=== PATIENT | female | born 1945 | race Caucasian/White ===

== ENCOUNTER → 2017-04-13 | Outpatient (CLI) | payer OTHER | LOC: FIMAGING 15:14 | PROVIDERS: ATTEND Family Medicine | DX: Z12.31 Encounter for screening mammogram for malignant neoplasm of breast (principal) | CPT/HCPCS: G0202 ==

== ENCOUNTER 2017-06-02 16:39 | Emergency (ER) | payer OTHER ==
[2017-06-02 16:53] VITALS: RESP 18; TEMP 98.4
[2017-06-02] MEDS ORDERED: LET GEL TOPICAL 1 EA SYR TP ONE (17:11)
[2017-06-02] MEDS ORDERED: IBUPROFEN 600 MG TAB PO ONE (17:18)
--- NOTE | 2017-06-02 17:41 | EDPHY ---
H & P Time Seen by Provider: 06/02/17 16:49 HPI/ROS: This patient suffered a mechanical fall on an uneven surface of a concrete driveway shortly prior to arrival with injuries to face, left wrist, right knee and a small lip injury, driven here by private vehicle by her spouse for evaluation. She reports 7/10 pain to the lip and 7/10 pain to the right knee with moderate pain to the left wrist. She describes a volar direct blow to the wrist and anterior direct blow to the right patella in the mechanism. She also reports a generalized headache. She did not have loss of consciousness and was not dazed from the injury. She has not had any medication prior to arrival. She felt well prior to the mechanical fall which she tripped. ROS: Neuro: No confusion. No focal numbness tingling weakness. No vision changes. Pulmonary: No chest wall pain or shortness of breath Cardiovascular: No heart palpitations or lightheadedness. No pallor to the affected extremities. GI: No belly injury. No nausea. She reports that she is hungry. Integumentary: Abrasion to the right knee and small laceration to the upper lip. Mild bleeding from both. Musculoskeletal: She reports minimal left lateral neck pain but no midline neck or back pain. No other extremity injuries. 7 point ROS is otherwise negative. Past Medical/Surgical History: Hypertension. Otherwise healthy. Smoking Status: Never smoked Physical Exam: Physical exam: Vital signs are normal General: Patient is in no acute distress. HEENT: Patient is a small 5mm well-approximated laceration to the upper lip buccal mucosa. There is no active bleeding from the wound. No foreign bodies under examination. There is no significant cosmetic defect to the external portion of the lip. No dental injury or other intraoral injuries. No malocclusion. Nose atraumatic. Ears: Cerumen impaction on the right. Left external canal is normal TM is clear with no hemotympanum. Eyes: Pupils are equal and reactive to light. Extraocular motions are intact. Optic fundi: Clear with no papilledema or hemorrhage. Lungs: Clear to auscultation bilaterally Neck: No midline tenderness. Minimal left lateral tenderness near the occiput that does not worsen with range of motion of neck. Cardiac: Regular rate and rhythm no murmur gallop or rub. Abdomen: Soft nontender no organomegaly Neuro: GCS of 15. Cranial nerves II through XII intact. Cerebellar exam is normal as judged by symmetric rapid hand movements bilaterally. No pronator drift. No sensory or motor deficits are appreciated. Extremities: Left wrist notable for volar ecchymosis, swelling and tenderness. Despite this she maintains good range of motion. There is no tenderness in the anatomical snuffbox or dorsal tenderness. No hand injury. Right knee exam notable for patellar swelling and tenderness with superficial abrasion. There is associated ecchymosis to the patella. No medial, lateral or posterior knee tenderness. She maintains good range of motion of the knee with exception of partial mentation flexion due to patellar pain. The remainder of the extremity exam is atraumatic normal. Initial differential diagnosis: Minor head injury, lip laceration, patellar contusion versus fracture, wrist contusion versus fracture Constitutional: Initial Vital Signs Temperature (C) 36.9 C 06/02/17 16:47 Heart Rate 77 06/02/17 16:47 Respiratory Rate 18 06/02/17 16:47 Blood Pressure 150/67 H 06/02/17 16:47 O2 Sat (%) 93 06/02/17 16:47 O2 Delivery Mode Room Air Allergies/Adverse Reactions: No Known Allergies Allergy (Unverified 06/02/17 16:53) Home Medications: Medication Instructions Recorded Asthmanex 06/02/17 Flonase Allergy Relief 06/02/17 Penicillin V Potassium [Pen Vk 500 mg PO BID #14 tab 06/02/17 500mg (*)] Triamterene 06/02/17 MDM/Departure - MDM Diagnostics: Wrist x-rays: Negative for acute fracture by my interpretation Knee x-rays: Negative for acute fracture by my interpretation Imaging Results: Imaging Impressions Knee X-Ray 06/02/17 17:12 Impression: No acute osseous findings. Wrist X-Ray 06/02/17 17:17 Impression: Degenerative changes. No fracture identified. Imaging: I viewed and interpreted images myself Medications Given: Discontinued Medications Ibuprofen (Motrin) 600 mg PO EDNOW ONE Stop: 06/02/17 17:19 Last Admin: 06/02/17 17:24 Dose: 600 mg Tetracaine/Epinephrine/Lidocaine (Let Gel Topical) 1 ea TP EDNOW ONE Stop: 06/02/17 17:12 Last Admin: 06/02/17 17:19 Dose: 1 ea ED Course/Re-evaluation: After lidocaine gel to the lip wound was clean by our nurse. There is no significant recurrence of bleeding on her recheck the lip wound still appears well approximated-buccal aspect of the lip not requiring sutures. Counseled her regarding intraoral wounds with plan to use penicillin antibiotic for prophylaxis-soft diet for 7 days, clean wound after eating. The prepatellar abrasions clean by our nurse, bacitracin bandage and Patel wrap applied Patel wrap also applied to her wrist. After negative radiograph of the wrist further evaluation reveals no limitation in range of motion and no increase in pain with any motion. Findings are most consistent with a contusion or small traumatic hematoma from a direct blow to the volar aspect of the wrist After ibuprofen all of her pain reduced significantly including her minor headache that she had upon initial evaluation. Given that the patient had no loss of consciousness, was not dazed and is not on blood thinners and clinically had improvement in her headache, I do not think that she requires neuro imaging she does not have any red flag findings on her exam. Patient does understand the need to return emergency department should she developed severe headache, confusion, vomiting or other concerns. She is instructed on basic wound care regarding her abrasions and contusions. - Depart Disposition: Home, Routine, Self-Care Clinical Impression: Traumatic hematoma Open lip wound Qualifiers: Encounter type: initial encounter Open wound type: laceration Foreign body presence: without foreign body Qualified Code(s): S01.511A - Laceration without foreign body of lip, initial encounter Contusion of wrist, left Qualifiers: Encounter type: initial encounter Qualified Code(s): S60.212A - Contusion of left wrist, initial encounter Minor head injury without loss of consciousness Qualifiers: Encounter type: initial encounter Qualified Code(s): S09.90XA - Unspecified injury of head, initial encounter Condition: Good Instructions: Head Injury (ED), Contusion in Adults (ED), Acute Wounds (ED) Additional Instructions: Diagnoses: 1. Intraoral lip laceration 2. Wrist contusion 3. Patellar hematoma 4. Minor head injury Plan: Ice 20 minutes at a time to wrist and knee 3 times a day for the next few days. Tylenol and/or ibuprofen for pain as needed Limit activity until he feel improved Clean abrasions daily with warm soapy water Soft diet for the next 5-7 days Clean lip wound after eating. Penicillin antibiotic to prevent infection and mouth. Return emergency department if he develops unbearable headache, vomiting more than twice, confusion or other concerns. Prescriptions: Penicillin V Potassium [Pen Vk 500mg (*)] 500 mg PO BID #14 tab Referrals: Tiesha Zendejas MD [Primary Care Provider] - As per Instructions
[2017-06-02 19:08] VITALS: BP 124/62; PULSE 78; O2SAT 98
== END 2017-06-02 19:07 | disposition home or self-care (01) ==
LOC: CED 16:39
DX: S09.90XA Unspecified injury of head, initial encounter (principal); S60.212A Contusion of left wrist, initial encounter; S01.511A Laceration without foreign body of lip, initial encounter; I10 Essential (primary) hypertension; W18.39XA Other fall on same level, initial encounter
CPT/HCPCS: 73110-PO; 73562-PO

== ENCOUNTER 2017-11-20 17:35 | Inpatient (IN) | payer OTHER ==
[2017-11-20] MEDS ORDERED: IPRATROPIUM/ALBUTEROL 3 ML DEYVIAL IH ONE (17:50)
[2017-11-20] MEDS ORDERED: ACETAMINOPHEN 500 MG TAB PO ONE (17:51)
[2017-11-20] MEDS ORDERED: IBUPROFEN 800 MG TAB PO ONE (17:51)
--- NOTE | 2017-11-20 17:53 | EDPHY ---
H & P Stated Complaint: cough/chills Time Seen by Provider: 11/20/17 17:45 HPI/ROS: CHIEF COMPLAINT: Fever and fatigue HISTORY OF PRESENT ILLNESS: Patient is a 72-year-old female with a history of asthma who comes to the emergency department complaining of fever and chills and fatigue. She has had a nonproductive cough. She states that she had a the upper respiratory infection 3 weeks ago and was treated in [place] with steroids and a Z-Lew. Her symptoms improved slightly but never completely resolved and now worsened. She denies any GI symptoms. No neurologic symptoms. REVIEW OF SYSTEMS: Constitutional: See HPI EENTM: denies: blurred vision, double vision, nose congestion Respiratory: see HPI Cardiac: denies: chest pain, irregular heart rate, lightheadedness, palpitations Gastrointestinal/Abdominal: denies: abdominal pain, diarrhea, nausea, vomiting, blood streaked stools Genitourinary: denies: dysuria, frequency, hematuria, pain Musculoskeletal: denies: joint pain, muscle pain Skin: denies: lesions, rash, jaundice, bruising Neurological: denies: headache, numbness, paresthesia, tingling, dizziness, weakness Hematologic/Lymphatic: denies: blood clots, easy bleeding, easy bruising Immunologic/allergic: denies: HIV/AIDS, transplant EXAM: GENERAL: Overweight, fatigued, warm HEAD: Atraumatic, normocephalic. EYES: Pupils equal round and reactive to light, extraocular movements intact, sclera anicteric, conjunctiva are normal. ENT: TMs normal, nares patent, oropharynx clear without exudates. Moist mucous membranes. NECK: Normal range of motion, supple without lymphadenopathy or JVD. LUNGS: Breath sounds clear to auscultation bilaterally and equal. No wheezes rales or rhonchi. HEART: Regular rate and rhythm without murmurs, rubs or gallops. ABDOMEN: Soft, nontender, normoactive bowel sounds. No guarding, no rebound. No masses appreciated. BACK: No CVA tenderness, no spinal tenderness, step-offs or deformities EXTREMITIES: Normal range of motion, no pitting or edema. No clubbing or cyanosis. NEUROLOGICAL: Cranial nerves II through XII grossly intact. Normal speech, normal gait. 5/5 strength, normal movement in all extremities, normal sensation PSYCH: Normal mood, normal affect. SKIN: Warm, dry, normal turgor, no visible rashes or lesions. Source: Patient Exam Limitations: No limitations - Personal History Current Tetanus/Diphtheria Vaccine: No Current Tetanus Diphtheria and Acellular Pertussis (TDAP): No - Medical/Surgical History Hx Asthma: Yes Hx Chronic Respiratory Disease: No Hx Diabetes: No Hx Cardiac Disease: No Hx Renal Disease: No Hx Cirrhosis: No Hx Alcoholism: No Hx HIV/AIDS: No Hx Splenectomy or Spleen Trauma: No Other PMH: hernia surgery 1997, left knee scope, lumpectomy, asthma - Family History Significant Family History: No pertinent family hx - Social History Smoking Status: Never smoked Alcohol Use: Sober Drug Use: None Constitutional: Initial Vital Signs Temperature (C) 39.1 C H 11/20/17 17:48 Heart Rate 113 H 11/20/17 17:48 Respiratory Rate 22 H 11/20/17 17:48 Blood Pressure 162/78 H 11/20/17 17:48 O2 Sat (%) 92 11/20/17 17:48 O2 Delivery Mode Room Air Allergies/Adverse Reactions: No Known Allergies Allergy (Unverified 06/02/17 16:53) Home Medications: Medication Instructions Recorded Asthmanex 06/02/17 Flonase Allergy Relief 06/02/17 Triamterene 06/02/17 Albuterol Hfa Anes Only 11/20/17 traZODone 50 mg 11/20/17 Medical Decision Making - Diagnostics EKG Interpretation: An EKG obtained and was read and documented in trace view. Please see trace view for full reading and report. Sinus rhythm, tachycardic, PVCs Imaging Results: Imaging Impressions Chest X-Ray 11/20/17 17:50 Impression: Bibasilar infiltrates, left greater than right (consistent with pneumonia), and a questionable tiny right upper lobe opacity, new since 2011. Recommendation: Clinical correlation and follow-up chest radiography in 4-6 weeks to assure resolution. A Follow-Up Required test result has been communicated via the [facility] Result system on 11/20/2017 18:30, Message ID [id number]. Imaging: Discussed imaging studies w/ on call pharmacy technician Radiologist ED Course/Re-evaluation: 6:30 p.m. We discussed the x-ray results. Will add on blood work and antibiotics. As well as fluids. The patient is saturating 93% on room air. 7:00 p.m. the patient's lactate is normal. Her white blood cell count is elevated. I have spoken with Dr. Ngo who will accept to the medical floor. She does meet criteria for sepsis but not severe sepsis. Differential Diagnosis: Partial list of the Differential diagnosis considered include but were not limited to; sepsis, pneumonia, bronchitis, asthma, influenza and although unlikely based on the history and physical exam, I also considered severe sepsis. Critical Care Time: Critical care time spent by me, Dr. Servin exclusive with this patient was 45 minutes, exclusive of the PA time exclusive of procedures. The organ system that was at risk was pulmonary and I gave diagnostics, treatment and admission to prevent worsening of the patient's condition - Data Points Laboratory Results: Laboratory Results 11/20/17 18:45 11/20/17 18:45 11/20/17 11/20/17 11/20/17 18:45 18:45 18:45 WBC RBC Hgb Hct MCV MCH MCHC RDW Plt Count MPV Neut % (Auto) Lymph % (Auto) [place] % (Auto) Eos % (Auto) Baso % (Auto) Nucleat RBC Rel Count Absolute Neuts (auto) Absolute Lymphs (auto) Absolute Monos (auto) Absolute Eos (auto) Absolute Basos (auto) Absolute Nucleated RBC Immature Gran % Immature Gran # PT 13.2 SEC SEC (12.0-15.0) INR 1.01 (0.83-1.16) APTT 25.8 SEC SEC (23.0-38.0) VBG Lactic Acid 1.7 mmol/L mmol/L (0.7-2.1) Sodium 135 mEq/L mEq/L (135-145) Potassium 3.6 mEq/L mEq/L (3.5-5.2) Chloride 101 mEq/L mEq/L (97-110) Carbon Dioxide 24 mEq/l mEq/l (22-31) Anion Gap 10 mEq/L mEq/L (8-16) BUN 14 mg/dL mg/dL (7-23) Creatinine 0.7 mg/dL mg/dL (0.6-1.0) Estimated GFR > 60 Glucose 231 mg/dL H mg/dL (70-100) Calcium 8.9 mg/dL mg/dL (8.5-10.4) Total Bilirubin 1.4 mg/dL mg/dL (0.1-1.4) Influenza A,B Rapid 11/20/17 11/20/17 18:45 18:00 WBC 16.28 10^3/uL H 10^3/uL (3.80-9.50) RBC 4.81 10^6/uL 10^6/uL (4.18-5.33) Hgb 13.9 g/dL g/dL (12.6-16.3) Hct 40.9 % % (38.0-47.0) MCV 85.0 fL fL (81.5-99.8) MCH 28.9 pg pg (27.9-34.1) MCHC 34.0 g/dL g/dL (32.4-36.7) RDW 14.2 % % (11.5-15.2) Plt Count 154 10^3/uL 10^3/uL (150-400) MPV 10.3 fL fL (8.7-11.7) Neut % (Auto) 86.9 % H % (39.3-74.2) Lymph % (Auto) 6.9 % L % (15.0-45.0) [place] % (Auto) 5.4 % % (4.5-13.0) Eos % (Auto) 0.2 % L % (0.6-7.6) Baso % (Auto) 0.2 % L % (0.3-1.7) Nucleat RBC Rel Count 0.0 % % (0.0-0.2) Absolute Neuts (auto) 14.13 10^3/uL H 10^3/uL (1.70-6.50) Absolute Lymphs (auto) 1.13 10^3/uL 10^3/uL (1.00-3.00) Absolute Monos (auto) 0.88 10^3/uL H 10^3/uL (0.30-0.80) Absolute Eos (auto) 0.03 10^3/uL 10^3/uL (0.03-0.40) Absolute Basos (auto) 0.04 10^3/uL 10^3/uL (0.02-0.10) Absolute Nucleated RBC 0.00 10^3/uL 10^3/uL (0-0.01) Immature Gran % 0.4 % % (0.0-1.1) Immature Gran # 0.07 10^3/uL 10^3/uL (0.00-0.10) PT INR APTT VBG Lactic Acid Sodium Potassium Chloride Carbon Dioxide Anion Gap BUN Creatinine Estimated GFR Glucose Calcium Total Bilirubin Influenza A,B Rapid NEGATIVE FOR FLU (NEGATIVE) Medications Given: Discontinued Medications Acetaminophen (Tylenol) 1,000 mg PO EDNOW ONE Stop: 11/20/17 17:52 Last Admin: 11/20/17 18:00 Dose: 1,000 mg Albuterol (Proventil Neb) 3 ml IH ONCE ONE Stop: 11/20/17 21:16 Last Admin: 11/20/17 21:21 Dose: 3 ml Albuterol/Ipratropium (Duoneb) 3 ml IH EDNOW ONE Stop: 11/20/17 17:51 Last Admin: 11/20/17 18:25 Dose: 3 ml Sodium Chloride (Ns) 2,500 mls @ 5,000 mls/hr 30 ml/kg infuse over 30 min ( 2500 ml) IV EDNOW ONE PRN Reason: Protocol Stop: 11/20/17 18:54 Last Admin: 11/20/17 18:51 Dose: 2,500 mls Levofloxacin/Dextrose (Levaquin 750 Mg (Premix)) 150 mls @ 100 mls/hr IV EDNOW ONE PRN Reason: Protocol Stop: 11/20/17 20:27 Last Admin: 11/20/17 19:51 Dose: 150 mls Ibuprofen (Motrin) 800 mg PO EDNOW ONE Stop: 11/20/17 17:52 Last Admin: 11/20/17 18:01 Dose: 800 mg Departure - Departure Disposition: [facility] Inpatient Acute Clinical Impression: Pneumonia Qualifiers: Pneumonia type: due to unspecified organism Laterality: bilateral Lung location : lower lobe of lung Qualified Code(s): J18.1 - Lobar pneumonia, unspecified organism Sepsis Qualifiers: Sepsis type: sepsis due to unspecified organism Qualified Code(s): A41.9 - Sepsis, unspecified organism Condition: Fair
[2017-11-20] MEDS ORDERED: prednisoLONE ACET 1% 5 ML OPHT.BTL ONE (17:55)
[2017-11-20] MEDS ORDERED: NS 2,500 ML IV ONE (18:25)
[2017-11-20 18:49] LABS: PLATELET COUNT 154 10^3/uL (150-400)
[2017-11-20 18:58] LABS: INR 1.01 (0.83-1.16); PROTIME(PATIENT) 13.2 SEC (12.0-15.0)
[2017-11-20] MEDS ORDERED: IBUPROFEN 200 MG TAB PO PRN (19:05)
[2017-11-20] MEDS ORDERED: ACETAMINOPHEN 500 MG TAB PO PRN (19:05)
[2017-11-20] MEDS ORDERED: ALBUTEROL 60 PUFFS/8 GM MDI IH PRN (19:05)
[2017-11-20] MEDS ORDERED: ONDANSETRON 4 MG/2 ML VIAL IVP PRN (19:05)
[2017-11-20] MEDS ORDERED: ONDANSETRON DISINTEGRATING 4 MG TAB PO PRN (19:05)
--- NOTE | 2017-11-20 19:34 | CPEKG ---
Heart Rate: 106 RR Interval: 566 P-R Interval: 196 QRSD Interval: 88 QT Interval: 320 QTC Interval: 425 P [place]: 63 QRS [place]: 6 T Wave [place]: 82 EKG Severity - ABNORMAL ECG - EKG Impression: SINUS TACHYCARDIA EKG Impression: ATRIAL PREMATURE COMPLEX EKG Impression: SINUS PAUSE/ARREST WITH ATRIAL ESCAPE EKG Impression: PROBABLE LEFT ATRIAL ABNORMALITY Electronically Signed By: Tay Servin 20-Nov-2017 19:55:57
--- NOTE | 2017-11-20 21:13 | PDGENHP ---
History and Physical - Chief Complaint Acute cough - History of Present Illness Primary care provider: Dr. Zendejas HPI: 72-year-old female presenting with acute cough characterized as nonproductive with associated fever and fatigue. The symptom onset reportedly began approximately 3 weeks ago, seemed to improve, and then recently acutely worsened. 2 days prior to arrival, she felt so fatigued that she could barely get out of bed, and she experienced night sweats/chills. Her cough was pervasive on the date of arrival. Over the past two days, her chronic shortness of breath has acutely worsened, such that ambulating up stairs requires her to stop and rest. 3 weeks ago she had been originally treated w/ a pred taper and azithromycin. She has not been using her PRN albuterol inh. She has been using tessalon which mildly alleviates the cough. She denies any GI symptoms or chest pain. History Information - Allergies/Home Medication List Allergies/Adverse Reactions: No Known Allergies Allergy (Unverified 06/02/17 16:53) Home Medications: Asthmanex 06/02/17 [Last Taken Unknown] Flonase Allergy Relief 06/02/17 [Last Taken Unknown] Triamterene 06/02/17 [Last Taken Unknown] Albuterol Hfa Anes Only 11/20/17 [Last Taken Unknown] traZODone 50 mg 11/20/17 [Last Taken Unknown] I have personally reviewed and updated: family history, medical history, social history, surgical history - Past Medical History asthma (without formal PFTs, diagnosed by an keg washer in [place]; never been intubated) Additional medical history: Upper respiratory infection approximately 3 weeks ago, treated with Z-Lew and steroids. LLL PNA 2011 treated w/ azithromycin. Hyperglycemia. PACs w/ stress test neg - Surgical History Additional surgical history: lumpectomy w/ benign breast tissue - Family History Additional family history: no VTE, no CAD - Social History Smoking Status: Never smoked Alcohol Use: Occasionally Drug Use: None Additional social history: recent travel to [place]; independent ADLs Review of Systems Review of Systems: ROS: 10pt was reviewed & negative except for what was stated in HPI & below Constitutional: Reports: fever, malaise, other (Fatigue) Respiratory: Reports: cough Physical Exam Physical Exam: Temp Pulse Resp BP Pulse Ox 37.5 C 93 20 110/58 L 92 11/20/17 19:17 11/20/17 21:00 11/20/17 21:00 11/20/17 21:00 11/20/17 21:00 Constitutional: no apparent distress, not in pain, obese, No uncomfortable Eyes: PERRL, anicteric sclera, EOMI Ears, Nose, Mouth, Throat: moist mucous membranes, hearing normal, ears appear normal, no oral mucosal ulcers Cardiovascular: regular rate and rhythym, no murmur, rub, or gallop, other ( intermittent ectopic PACs), No edema Respiratory: reduced air movement (on exp bilat), expiratory wheeze, inspiratory crackles (bilat bases), No bronchial breath sounds, No respiratory distress Gastrointestinal: normoactive bowel sounds, soft, non-tender abdomen, no palpable masses, No hepatosplenomegally, No distension Skin: No abrasion, No rash Neurologic: AAOx3, sensation intact bilaterally, No weakness Psychiatric: interacting appropriately, not anxious, not encephalopathic, thought process linear Lymph, Heme, Immunologic: other (mildly tender ant cervical L lymph node w/o post cerv LAD) Lab Data & Imaging Review 11/20/17 18:45 11/20/17 18:45 WBC 16.28 10^3/uL (3.80-9.50) H 11/20/17 18:45 RBC 4.81 10^6/uL (4.18-5.33) 11/20/17 18:45 Hgb 13.9 g/dL (12.6-16.3) 11/20/17 18:45 Hct 40.9 % (38.0-47.0) 11/20/17 18:45 MCV 85.0 fL (81.5-99.8) 11/20/17 18:45 MCH 28.9 pg (27.9-34.1) 11/20/17 18:45 MCHC 34.0 g/dL (32.4-36.7) 11/20/17 18:45 RDW 14.2 % (11.5-15.2) 11/20/17 18:45 Plt Count 154 10^3/uL (150-400) 11/20/17 18:45 MPV 10.3 fL (8.7-11.7) 11/20/17 18:45 Neut % (Auto) 86.9 % (39.3-74.2) H 11/20/17 18:45 Lymph % (Auto) 6.9 % (15.0-45.0) L 11/20/17 18:45 [place] % (Auto) 5.4 % (4.5-13.0) 11/20/17 18:45 Eos % (Auto) 0.2 % (0.6-7.6) L 11/20/17 18:45 Baso % (Auto) 0.2 % (0.3-1.7) L 11/20/17 18:45 Nucleat RBC Rel Count 0.0 % (0.0-0.2) 11/20/17 18:45 Absolute Neuts (auto) 14.13 10^3/uL (1.70-6.50) H 11/20/17 18:45 Absolute Lymphs (auto) 1.13 10^3/uL (1.00-3.00) 11/20/17 18:45 Absolute Monos (auto) 0.88 10^3/uL (0.30-0.80) H 11/20/17 18:45 Absolute Eos (auto) 0.03 10^3/uL (0.03-0.40) 11/20/17 18:45 Absolute Basos (auto) 0.04 10^3/uL (0.02-0.10) 11/20/17 18:45 Absolute Nucleated RBC 0.00 10^3/uL (0-0.01) 11/20/17 18:45 Immature Gran % 0.4 % (0.0-1.1) 11/20/17 18:45 Immature Gran # 0.07 10^3/uL (0.00-0.10) 11/20/17 18:45 PT 13.2 SEC (12.0-15.0) 11/20/17 18:45 INR 1.01 (0.83-1.16) 11/20/17 18:45 APTT 25.8 SEC (23.0-38.0) 11/20/17 18:45 VBG Lactic Acid 1.7 mmol/L (0.7-2.1) 11/20/17 18:45 Sodium 135 mEq/L (135-145) 11/20/17 18:45 Potassium 3.6 mEq/L (3.5-5.2) 11/20/17 18:45 Chloride 101 mEq/L (97-110) 11/20/17 18:45 Carbon Dioxide 24 mEq/l (22-31) 11/20/17 18:45 Anion Gap 10 mEq/L (8-16) 11/20/17 18:45 BUN 14 mg/dL (7-23) 11/20/17 18:45 Creatinine 0.7 mg/dL (0.6-1.0) 11/20/17 18:45 Estimated GFR > 60 11/20/17 18:45 Glucose 231 mg/dL (70-100) H 11/20/17 18:45 Calcium 8.9 mg/dL (8.5-10.4) 11/20/17 18:45 Total Bilirubin 1.4 mg/dL (0.1-1.4) 11/20/17 18:45 Influenza A,B Rapid NEGATIVE FOR FLU (NEGATIVE) 11/20/17 18:00 Visualized and Interpreted Chest x-ray results: Yes Chest X-Ray results: other (Bilateral lower lobe infiltrates, left greater than right) Visualized and Interpreted EKG results: Yes EKG Interpretation: Positive for: other (PACs, NSR) Assessment & Plan Assessment: 72-year-old female presenting with acute pneumonia c/b acute asthma exacerbation Plan: 1. Pneumonia. Acute, new problem this provider, further workup indicated. Specific organism unclear, possibly a post viral pneumonia with URI reportedly 3 weeks ago, symptomatic improvement, and then recent worsening, raises the possibility of higher severity organisms including MRSA and Pseudomonas -currently no evidence of sepsis -monitor closely, discussed with Dr. Tay Servin, he has reported to me that the patient has received IV levofloxacin, will continue and add vancomycin if the patient is clinically worsening -reviewed outside records including 07/11/2012 chest x-ray also demonstrating a similar left lower lobe infiltrate, recommend she get a f/u CXR after this episode to demonstrate clearance and if LLL inf persists, chest CT -get sputum culture, urine Legionella, urine strep, respiratory viral panel, blood cultures -monitor daily white blood cell count -treat supportively with mucolytics, antitussives 2. Asthma. Acute exacerbation likely triggered by infxn, she has mild intermittent disease at baseline (although I think she could use her PRN albuterol more frequently than she currently does), has never been intubated -treat with scheduled duo nebs overnight -start pred 40 daily 3. High blood pressure. Does not have a chronic diagnosis, continue to monitor 4. Hyperglycemia. Acute, but she reports prior hx -get A1c -hold on ISS unless she overtly has DM2, and would then rec starting metformin as well Diet. Regular Prophylaxis. Moderate risk patient, Lovenox 40 Code. Full Disposition. Anticipated discharge is uncertain this time, admit to inpatient admission status with anticipated length stay greater than 48 hr for reasonable medical necessity including acute pneumonia with high risk comorbid asthma exacerbation, as well as possibly high severity illness organisms.
[2017-11-20] MEDS ORDERED: ALBUTEROL 3 ML DEYVIAL IH ONE (21:15)
[2017-11-20] MEDS ORDERED: ALBUTEROL 3 ML DEYVIAL ONE (21:17)
[2017-11-20] MEDS ORDERED: traZODone 50 MG TAB PO SCH (23:15)
[2017-11-21] MEDS: predniSONE 20 MG TAB PO SCH ×2 (00:12→08:13)
[2017-11-21] MEDS: NS W/ 20 KCl/L 1,000 ML IV SCH ×2 (00:12→07:46)
[2017-11-21] MEDS: guaiFENesin 600 MG TAB.ER PO SCH ×3 (00:13→21:41)
[2017-11-21] MEDS: BENZONATATE 100 MG CAP PO PRN ×2 (00:13→18:43)
[2017-11-21] MEDS: IPRATROPIUM/ALBUTEROL 3 ML DEYVIAL IH SCH ×3 (01:19→11:21)
[2017-11-21 04:53] LABS: PLATELET COUNT 123 10^3/uL (150-400)
--- NOTE | 2017-11-21 07:54 | PDMN ---
Medical Necessity Medical necessity: Pt meets IP criteria per MD; est los >2 mn for eval/tx of acute pneumonia w/high risk comorbid asthma exacerbation, as well as possibility of higher severity illness organisms; admit for further workup/ close monitoring, IV abx, IVFs, supportive care & therapies; hx recent upper respiratory infection, asthma, pneumonia & hyperglycemia; per H&P & order
[2017-11-21] MEDS: ENOXAPARIN 40 MG/0.4 ML SYR SC SCH (08:13)
[2017-11-21] MEDS ORDERED: ALBUTEROL 60 PUFFS/8 GM MDI IH PRN (08:23)
[2017-11-21] MEDS: MOMETASONE 220MCG INHALER IH SCH (08:41)
[2017-11-21] MEDS ORDERED: SERTRALINE HCL 50 MG TAB PO SCH (09:00)
[2017-11-21] MEDS ORDERED: CHOLECALCIFEROL VIT D3 2,000 UNITS TAB/CAP PO SCH (09:00)
[2017-11-21] MEDS ORDERED: ASCORBIC ACID 500 MG TAB PO SCH (09:00)
[2017-11-21] MEDS ORDERED: Herbals/Supplements -Info Only PO SCH (09:00)
[2017-11-21] MEDS ORDERED: MONTELUKAST SODIUM 10 MG TAB PO SCH (09:00)
[2017-11-21] MEDS: FLUTICASONE NASAL 120 SPRAYS/16 GM MDI EACHNARE SCH (11:18)
[2017-11-21] MEDS ORDERED: D50W 25 GM/50 ML SYR IVP PRN (11:50)
--- NOTE | 2017-11-21 11:50 | HOSPPROG ---
Hospitalist Progress Note Assessment/Plan: #Sepsis: elevated WBC, tachycardia and PNA -BP stable. Cont LQ, can change to oral. Sputum, blood cultures pending. Resp panel PCR #Leukocytosis: plan as stated above #Asthma: no e/o exacerbation. Not wheezing. Will resume home inhaler and stop pred since couldn't sleep and just completed long taper #Hyperglycemia: A1c 6.8%, steroids contributing. SSI here #Weakness: due to acute illness. PT/OT #Diet: regular #DVT: lovenox #Disp: warrants inpatient admission for abx, awaiting culture data. If clinically improved, may be able to DC tomorrow Subjective: dry cough today. Fevered last night with sweats. Objective: Vital Signs Temp Pulse Resp BP Pulse Ox 36.4 C 84 18 134/76 H 94 11/21/17 07:24 11/21/17 07:24 11/21/17 07:24 11/21/17 07:24 11/21/17 07:24 Microbiology 11/20/17 19:35 - Final Sputum, Expectorated Laboratory Results 11/21/17 04:34 11/21/17 04:34 11/20/17 11/21/17 11/22/17 05:59 05:59 05:59 Intake Total 3760 880 Output Total 450 Balance 3760 430 PT 13.2 SEC (12.0-15.0) 11/20/17 18:45 INR 1.01 (0.83-1.16) 11/20/17 18:45 - Physical Exam Constitutional: other (tired, NAD) Ears, Nose, Mouth, Throat: moist mucous membranes Cardiovascular: regular rate and rhythym, no murmur, rub, or gallop Respiratory: other (crackles right base. No wheezing) Gastrointestinal: normoactive bowel sounds, soft, non-tender abdomen Genitourinary: no bladder fullness Musculoskeletal: full muscle strength Neurologic: AAOx3, CN II-XII Intact Psychiatric: interacting appropriately ICD10 Worksheet Patient Problems: Problems Problem Status Onset Pneumonia Acute Sepsis Acute
[2017-11-21] MEDS: INSULIN LISPRO 100 UNIT/ML SC SCH ×2 (12:23→18:24)
[2017-11-21] MEDS: SERTRALINE HCL 50 MG TAB PO SCH (12:24)
[2017-11-21] MEDS: ASCORBIC ACID 500 MG TAB PO SCH ×2 (13:02→21:42)
[2017-11-21] MEDS: Fexofenadine Hcl [Allegra Allergy] 180 MG PO SCH (13:03)
[2017-11-21] MEDS: [UNRECOGNIZED DRUG - OTHER] PO SCH (13:05)
[2017-11-21] MEDS: MONTELUKAST SODIUM 10 MG TAB PO SCH (13:05)
[2017-11-21] MEDS: [UNRECOGNIZED DRUG - OTHER] PO SCH (13:07)
--- NOTE | 2017-11-21 14:05 | ASMTCMCOM ---
CM Note CM Note Notes: Chart reviewed for discharge planning services. She is up ambulating and should dc. CM to follow. Date Signed: 11/21/2017 02:04 PM Electronically Signed By:Grace Zelaya RN
[2017-11-21] MEDS ORDERED: traZODone 50 MG TAB PO SCH (21:00)
[2017-11-21] MEDS: CHOLECALCIFEROL VIT D3 2,000 UNITS TAB/CAP PO SCH (21:42)
[2017-11-21] MEDS: CINNAMON BARK PO SCH (21:43)
[2017-11-21] MEDS ORDERED: MELATONIN 3 MG TAB PO SCH (22:45)
[2017-11-22] MEDS: BENZONATATE 100 MG CAP PO PRN ×2 (00:37→14:30)
[2017-11-22] MEDS: MOMETASONE 220MCG INHALER IH SCH (09:05)
[2017-11-22 11:02] VITALS: BP 155/76
[2017-11-22] MEDS: MONTELUKAST SODIUM 10 MG TAB PO SCH (11:02)
[2017-11-22] MEDS: guaiFENesin 600 MG TAB.ER PO SCH (11:03)
[2017-11-22] MEDS: Fexofenadine Hcl [Allegra Allergy] 180 MG PO SCH (11:05)
[2017-11-22] MEDS: ASCORBIC ACID 500 MG TAB PO SCH (11:05)
[2017-11-22] MEDS: CHOLECALCIFEROL VIT D3 2,000 UNITS TAB/CAP PO SCH (11:05)
[2017-11-22] MEDS: [UNRECOGNIZED DRUG - OTHER] PO SCH (11:05)
[2017-11-22] MEDS: CINNAMON BARK PO SCH (11:06)
[2017-11-22] MEDS: FLUTICASONE NASAL 120 SPRAYS/16 GM MDI EACHNARE SCH (11:07)
[2017-11-22] MEDS: [UNRECOGNIZED DRUG - OTHER] PO SCH (11:07)
[2017-11-22] MEDS: SERTRALINE HCL 50 MG TAB PO SCH (11:10)
[2017-11-22] MEDS: ENOXAPARIN 40 MG/0.4 ML SYR SC SCH (11:15)
[2017-11-22] MEDS: INSULIN LISPRO 100 UNIT/ML SC SCH ×2 (11:25→11:36)
--- NOTE | 2017-11-22 13:25 | ASMTLACE ---
TONYA Acuity / Level of Answers: Yes Care: Did the patient have an inpatient admission? Comorbidities - select Answers: Other Notes: pneumonia all that apply # of Emergency department Answers: 1-2 visits in the last 6 months Score: 5 Date Signed: 11/22/2017 01:25 PM Electronically Signed By:Grace Zelaya RN
--- NOTE | 2017-11-22 13:27 | ASMTCMCOM ---
CM Note CM Note Notes: Patient has been medically cleared for discharge to home per hospital medicine. Therapy evaluations also clear patient to go home independent, No needs identified. Plan home independent. CM available should needs arise. Date Signed: 11/22/2017 01:26 PM Electronically Signed By:Grace Zelaya RN
--- NOTE | 2017-11-22 17:53 | PDDCSUM ---
Discharge Summary Discharge Summary: DISCHARGE SUMMARY FOLLOW-UP ITEMS: Diabetic education Repeat chest x-ray in 4 weeks DATE OF ADMISSION: 11/20/2017 DATE OF DISCHARGE: 11/22/2017 DISCHARGE DIAGNOSES: 1. Suspected streptococcal left lower lobe pneumonia, present on admission 2. Acute asthma exacerbation 3. Chronic hypertension 4. New diagnosis of diabetes mellitus with hyperglycemia CONSULTATIONS: None PROCEDURES / IMAGING: Chest x-ray demonstrating bibasilar infiltrates, left greater than right CHIEF COMPLAINT: Acute cough and shortness of breath SUBJECTIVE: Patient is feeling better at time of discharge, she believes her shortness of breath has resolved PHYSICAL EXAM ON DISCHARGE: Systolic blood pressure 140, heart rate 70, afebrile overnight, satting on room air, alert awake oriented x3, no apparent distress, patient has rapid speech with tangential story telling, but she is redirectable, she does follow cues, she is cooperative, she has no expiratory wheezes on physical exam, she has some inspiratory crackles in the left base as well as some expiratory crackles in left base, she has no respiratory distress, heart rhythm is regular, she has no lower extremity edema LABS ON DISCHARGE: Hemoglobin A1c 6.8%, procalcitonin 0.24, respiratory viral panel negative, sputum culture demonstrating 3+ Gram-positive cocci HOSPITAL COURSE BY PROBLEM: The patient presented with acute left lower lobe pneumonia evidenced by respiratory symptoms including cough, shortness of breath, radiographic evidence of by lateral lower lobe infiltrates, left greater than right, as well as leukocytosis, fever, tachycardia, and sputum culture demonstrated 3+ Gram- positive cocci, suggestive of suspected streptococcal organism. The pneumonia was present on admission. I do not believe that the patient experienced sepsis. She did however experience concomitant acute asthma exacerbation as evidenced by expiratory wheezes and bronchial breath sounds, likely triggered by her infection. She received 2 days of steroids as well as scheduled DuoNeb treatments, and the asthma exacerbation abated. She will not receive any subsequent days of steroids, given that her reactive airways have completely resolved in the patient is experiencing what could be characterized as some manic steroid induced symptoms. That being said, the patient does not believe the symptoms are pervasive, and neither she nor her are concerned about them going home. She should be safe utilizing her home albuterol inhaler as needed, and the patient was encouraged to utilize this inhaler when she does experience shortness of breath symptoms, which she was not previously doing. After stabilization of both these conditions, the patient was safely discharged home on 3 subsequent days of antibiotics, to complete a total of 5 days treatment. It was also noted during this hospitalization that her hemoglobin A1c was 6.8% the setting of hyperglycemia, and as this is by definition a new diagnosis of diabetes mellitus, I recommend that she receive outpatient education and establishment with the vegetable cook at her primary care clinic. This was communicated to the patient's transitional care registration representative. At the present time, would not recommend initiating her on metformin, as the patient has not had thorough diabetic teaching and since her current hyperglycemia is not posing a in acute threat, I would not want her to experience some side effects of her antibiotics and conflate them as side effects of metformin, and then discontinue a much needed future medication. She also had an elevated blood pressure during hospitalization I recommend rechecking her blood pressure as an outpatient to ensure that she does not also require antihypertensive medication titration. DISCHARGE MEDICATIONS: Please see official discharge medication reconciliation sheet in chart , continue home medications with the addition of levofloxacin 750 mg x3 subsequent days, as needed [facility] [place], as needed albuterol inhaler. DISCHARGE INSTRUCTIONS: Please follow up with Dr. Zendejas within 1 week. TIME SPENT: Greater than 30 minutes were spent on direct patient care, as well as discharge planning and preparation.
[2017-11-23] MEDS ORDERED: FOLIC ACID 1 MG TAB PO SCH (08:00)
[2017-11-23] MEDS ORDERED: CYANO/VITAMIN B12 1000 MCG TAB PO SCH (08:00)
== END 2017-11-22 14:56 | disposition home or self-care (01) | DRG 194 ==
LOC: CED 17:35 → UNDOADMIN 19:03 → CEDHOLD 19:03 → F1N 22:23
PROVIDERS: ADMIT Internal Medicine; ATTEND Internal Medicine
DX: J13 Pneumonia due to Streptococcus pneumoniae (principal); J45.901 Unspecified asthma with (acute) exacerbation; E11.65 Type 2 diabetes mellitus with hyperglycemia; I10 Essential (primary) hypertension
CPT/HCPCS: 71046-PO; 80048-PO; 82247-PO; 83605-PO; 85610-PO; 85730-PO; 87449-90; 96365; 97161-GP; 97165-GO; G8978-GP-CI; G8979-GP-CI; G8987-GO-CI; G8988-GO-CH; G8989-GO-CH; J1650; J1815; J1956; J7512; J7613

== ENCOUNTER → 2018-06-14 | Outpatient (CLI) | payer OTHER | LOC: CIMAGING 14:39 | PROVIDERS: ATTEND Family Medicine | DX: Z12.31 Encounter for screening mammogram for malignant neoplasm of breast (principal) ==

== ENCOUNTER 2018-12-28 12:49 | Emergency (ER) | payer OTHER ==
--- NOTE | 2018-12-28 13:04 | EDPHY ---
H & P Time Seen by Provider: 12/28/18 13:03 HPI/ROS: CHIEF COMPLAINT: Right leg pain HISTORY OF PRESENT ILLNESS: This is a 73-year-old female with right knee and lower leg pain. This pain is the result of a fall that occurred when she was getting out of bed around 10:30 a.m. This morning. She was feeling stiff overall and she got out of bed her right knee buckled and her left leg slipped out from under her on a rug. This cause the right knee did twist. She did not strike her head. She has not injured other than the right leg. Initially the right hip was painful but this has subsided. She is now having pain involving the right knee. She has been able to ambulate but bought a cane earlier today to help her get about. It is painful for her to put weight on the right leg. She took 3 ibuprofen earlier today. She has never injured this knee before. She denies numbness or weakness of the right leg. No headache, chest pain, shortness of breath, abdominal pain, neck or back pain. REVIEW OF SYSTEMS: A ten system review of systems was performed and is negative with the exception of the items mentioned in the HPI. Past medical history: 1. Asthma 2. Hyperglycemia 3. Pneumonia Past surgical history: Breast lumpectomy--benign, hernia surgery Social history: She does not use tobacco products or illicit drugs. She occasionally uses alcohol. She lives independently. General Appearance: Alert. Vital signs reviewed. Eyes: Pupils equal and round, no conjunctival injection, no discharge. Anicteric. Neck: Nontender to palpation over the cervical spine in the midline. No pain with active range of motion of her neck. Respiratory: Lungs are clear to auscultation; no wheezes, rales, or rhonchi. Cardiovascular: Regular rate and rhythm; no murmur, rub, or gallop. Gastrointestinal: Abdomen is soft and nontender, no masses or organomegaly, bowel sounds normal. Skin: Warm and dry, no rashes on exposed skin, normal color. Back: Nontender to palpation over the thoracolumbar spine. No CVAT. Extremities: There is a medial effusion of the right knee. She is able to fully flex and extend the right knee but it is painful for her to do so. She has pain with palpation over both the medial and lateral joint lines on the right. Normal sensation to light touch over both lower extremities. Full plantar and dorsiflexion on the right. No pain with active range of movement of her right hip. Pulses: 2+ dorsalis pedis pulses bilaterally. Neurological: Alert and oriented. Moving both upper extremities easily. Normal range of motion of her left lower extremity. Facial expressions symmetric. Psychiatric: Normal affect. - Medical/Surgical History Hx Asthma: Yes Hx Chronic Respiratory Disease: No Hx Diabetes: No Hx Cardiac Disease: No Hx Renal Disease: No Hx Cirrhosis: No Hx Alcoholism: No Hx HIV/AIDS: No Hx Splenectomy or Spleen Trauma: No Other PMH: hernia surgery 1997, left knee scope, lumpectomy, asthma - Social History Smoking Status: Never smoked Constitutional: Initial Vital Signs Temperature (C) 37.1 C 12/28/18 12:55 Heart Rate 80 12/28/18 12:55 Respiratory Rate 14 12/28/18 12:55 Blood Pressure 129/58 H 12/28/18 12:55 O2 Sat (%) 94 12/28/18 12:55 O2 Delivery Mode Room Air O2 (L/minute) 0 Allergies/Adverse Reactions: No Known Allergies Allergy (Verified 12/28/18 13:08) Home Medications: Medication Instructions Recorded Fluticasone Nasal [Flonase Nasal 2 sprays NASAL DAILY 06/02/17 [place]] Mometasone 220Mcg Inhaler [Asmanex 2 puffs IH DAILY 06/02/17 Inh (*)] Triamterene/Hydrochlorothiazid 1.5 each PO DAILY 06/02/17 [Triamterene-Hctz 37.5-25 mg Tb] traZODone [traZODONE 50MG (*)] 50 mg PO HS 11/20/17 Ascorbic Acid [Vitamin C 500 mg 500 mg PO BID 11/21/17 (*)] Cholecalciferol Vit D3 [Vitamin D3 2,000 units PO BID 11/21/17 2000 units tab (OTC)] Cinnamon Bark [Cinnamon] 1 cap PO BID 11/21/17 Cyanocobalamin [Vitamin B12 (*)] 1,000 mcg PO [facility] 11/21/17 Fexofenadine HCl [Amita Allergy] 180 mg PO DAILY 11/21/17 Folic Acid [Folic Acid 1 MG (*)] 1 mg PO [facility] 11/21/17 Herbals/Supplements -Info Only 1 ea PO DAILY 11/21/17 Montelukast Sodium [Singulair 10 10 mg PO DAILY 11/21/17 mg (*)] Pb8 Supports Digestive Health 1 cap PO DAILY 11/21/17 Sertraline HCl [Zoloft 50mg (*)] 50 mg PO DAILY 11/21/17 Vitamin B100 1 cap PO DAILY 11/21/17 Albuterol [Proventil Inhaler HFA 1 - 2 puffs IH DAILY PRN #1 mdi 11/22/17 (*)] Medical Decision Making ED Course/Re-evaluation: X-ray of the right knee obtained. It shows a spiral proximal tibial shaft fracture. She has no ankle pain or swelling and I do not suspect distal involvement. After seeing the x-ray she was re-evaluated with special attention to the peroneal nerve. She has normal dorsiflexion and eversion on the right. She has normal sensation on the dorsum of her foot and the webspace between her 1st and 2nd toes. I do not suspect a peroneal nerve injury. There is no evidence of compartment syndrome. She was placed in the long-leg knee immobilizer with the leg in extension. She will crutch walk. She is referred to her orthopedist, Dr. Marcos Walter. Differential Diagnosis: I considered a differential diagnosis that includes but is not limited to fracture, nerve injury, compartment syndrome, dislocation, sprain, strain, contusion, internal derangement. Departure - Departure Disposition: Home, Routine, Self-Care Clinical Impression: Fracture, fibula, proximal Qualifiers: Encounter type: initial encounter Fracture type: closed Fracture morphology: other fracture Laterality: right Qualified Code(s): S82.831A - Other fracture of upper and lower end of right fibula, initial encounter for closed fracture Condition: Good Instructions: Leg Fracture (ED), Crutch Instructions (ED), R.I.C.E. Treatment ( ED) Additional Instructions: Follow up with Dr. Walter. When you call his office let the office staff know that you have a spiral fracture of the proximal shaft of your fibula. Let them know that your leg has been immobilized and that you are crutch walking. They will arrange a follow-up appointment for you. Referrals: Tiesha Zendejas MD [Primary Care Provider] - As per Instructions MARCOS WALTER [Non Staff Provider ()] - As per Instructions
[2018-12-28 15:32] VITALS: BP 123/68
== END 2018-12-28 15:23 | disposition home or self-care (01) ==
LOC: CED 12:49
DX: S82.441A Displaced spiral fracture of shaft of right fibula, initial encounter for closed fracture (principal); J45.909 Unspecified asthma, uncomplicated; W01.0XXA Fall on same level from slipping, tripping and stumbling without subsequent striking against object, initial encounter; Y92.003 Bedroom of unspecified non-institutional (private) residence as the place of occurrence of the external cause
CPT/HCPCS: 73564; 99283; L1830

== ENCOUNTER 2019-01-11 15:54 | Emergency (ER) | payer OTHER ==
--- NOTE | 2019-01-11 16:20 | EDPHY ---
H & P Stated Complaint: RtLL Fx 2wks ago - c/o RTLL inc. swelling/pain x 3days Time Seen by Provider: 01/11/19 16:14 HPI/ROS: CHIEF COMPLAINT: Leg swelling HISTORY OF PRESENT ILLNESS: The patient is a 73-year-old female who comes to the emergency department complaining of right lower extremity swelling and edema. She fell getting out of bed 2 weeks ago and has a proximal fibular fracture. She has been wearing a Jayson boot. She has follow-up with Orthopedics arranged. She noticed over last 2 days that she has had increased swelling in that leg and it is now difficult to fit her Jayson boot on or her pants. She came to be evaluated for DVT. No new injuries. No erythema. No fevers or warmth. No skin lesions. Severity: Moderate Modifying factors: None REVIEW OF SYSTEMS: Constitutional: denies: chills, fever, recent illness, recent injury EENTM: denies: blurred vision, double vision, nose congestion Respiratory: denies: cough, shortness of breath Cardiac: denies: chest pain, irregular heart rate, lightheadedness, palpitations Gastrointestinal/Abdominal: denies: abdominal pain, diarrhea, nausea, vomiting, blood streaked stools Genitourinary: denies: dysuria, frequency, hematuria, pain Musculoskeletal: See HPI Skin: denies: lesions, rash, jaundice, bruising Neurological: denies: headache, numbness, paresthesia, tingling, dizziness, weakness Hematologic/Lymphatic: denies: blood clots, easy bleeding, easy bruising Immunologic/allergic: denies: HIV/AIDS, transplant 10 systems reviewed and negative except as noted EXAM: GENERAL: Well-appearing, well-nourished and in no acute distress. HEAD: Atraumatic, normocephalic. EYES: Pupils equal round and reactive to light, extraocular movements intact, sclera anicteric, conjunctiva are normal. ENT: TMs normal, nares patent, oropharynx clear without exudates. Moist mucous membranes. NECK: Normal range of motion, supple without lymphadenopathy or JVD. LUNGS: Breath sounds clear to auscultation bilaterally and equal. No wheezes rales or rhonchi. HEART: Regular rate and rhythm without murmurs, rubs or gallops. ABDOMEN: Soft, nontender, normoactive bowel sounds. No guarding, no rebound. No masses appreciated. BACK: No CVA tenderness, no spinal tenderness, step-offs or deformities EXTREMITIES: Right calf and ankle swelling and 1+ edema. Mild pain to compression of the calf. NEUROLOGICAL: Cranial nerves II through XII grossly intact. Normal speech. Walking with a walker wearing her Jayson boot. 5/5 strength, normal movement in all extremities, normal sensation, normal reflexes PSYCH: Normal mood, normal affect. SKIN: Warm, dry, normal turgor, no visible rashes or lesions. Source: Patient Exam Limitations: No limitations - Personal History Current Tetanus Diphtheria and Acellular Pertussis (TDAP): Yes - Medical/Surgical History Hx Asthma: Yes Hx Chronic Respiratory Disease: No Hx Diabetes: No Hx Cardiac Disease: No Hx Renal Disease: No Hx Cirrhosis: No Hx Alcoholism: No Hx HIV/AIDS: No Hx Splenectomy or Spleen Trauma: No Other PMH: hernia surgery 1997, left knee scope, lumpectomy, asthma - Social History Smoking Status: Never smoked Alcohol Use: Sober Drug Use: None Constitutional: Initial Vital Signs Temperature (C) 36.6 C 01/11/19 16:09 Heart Rate 75 01/11/19 16:09 Respiratory Rate 18 01/11/19 16:09 Blood Pressure 157/86 H 01/11/19 16:09 O2 Sat (%) 97 01/11/19 16:09 O2 Delivery Mode Room Air Allergies/Adverse Reactions: No Known Allergies Allergy (Verified 12/28/18 13:08) Home Medications: Medication Instructions Recorded Fluticasone Nasal [Flonase Nasal 2 sprays NASAL DAILY 06/02/17 [place]] Mometasone 220Mcg Inhaler [Asmanex 2 puffs IH DAILY 06/02/17 Inh (*)] Triamterene/Hydrochlorothiazid 1.5 each PO DAILY 06/02/17 [Triamterene-Hctz 37.5-25 mg Tb] traZODone [traZODONE 50MG (*)] 50 mg PO HS 11/20/17 Ascorbic Acid [Vitamin C 500 mg 500 mg PO BID 11/21/17 (*)] Cholecalciferol Vit D3 [Vitamin D3 2,000 units PO BID 11/21/17 2000 units tab (OTC)] Cinnamon Bark [Cinnamon] 1 cap PO BID 11/21/17 Cyanocobalamin [Vitamin B12 (*)] 1,000 mcg PO MWF 11/21/17 Fexofenadine HCl [Amita Allergy] 180 mg PO DAILY 11/21/17 Folic Acid [Folic Acid 1 MG (*)] 1 mg PO MWF 11/21/17 Herbals/Supplements -Info Only 1 ea PO DAILY 11/21/17 Montelukast Sodium [Singulair 10 10 mg PO DAILY 11/21/17 mg (*)] Pb8 Supports Digestive Health 1 cap PO DAILY 11/21/17 Sertraline HCl [Zoloft 50mg (*)] 50 mg PO DAILY 11/21/17 Vitamin B100 1 cap PO DAILY 11/21/17 Albuterol [Proventil Inhaler HFA 1 - 2 puffs IH DAILY PRN #1 mdi 11/22/17 (*)] Dabigatran Etexilate Mesyl 150 mg PO BID #60 cap 01/11/19 [Pradaxa 150 MG (*)] Medical Decision Making - Diagnostics Imaging Results: Imaging Impressions Extremity Venous Study 01/11/19 16:16 Impression: 1. No evidence of deep vein thrombosis in the thigh. 2. Small segment of nonocclusive thrombus in the right posterior tibial vein. 3. Large popliteal cyst Tay Servin was notified of these findings by telephone at 6:17 PM on 2018 Imaging: Discussed imaging studies w/ hand leather trimmer Radiologist ED Course/Re-evaluation: 5:30 p.m. We had a long discussion about the patient's ultrasound results. Will start on Pradaxa. Discussed other options. I have paged case management to see about samples. She will follow up with Dr. Saucedo for management of her anticoagulants. She has a follow-up appoint with Orthopedics next week and is back to set began physical therapy. 6:00 p.m. Drawing blood work prior to starting anticoagulants. Patient is previously where for Burden cyst. Spoke with case management who was able to get a Pradaxa coupon. The patient's will go pick it up at the senior front end engineer of the ER. I have given him the numbers from the card that he may be able to use instead. Differential Diagnosis: Partial list of the Differential diagnosis considered include but were not limited to; DVT, Burden cyst, edema and although unlikely based on the history and physical exam, I also considered infection, dissection, aneurysm. I discussed these differential diagnoses and the plan with the patient as well as the usual and expected course. The patient understands that the diagnosis is provisional and that in medicine we are not always correct and that further workup is often warranted. Usual and customary warnings were given. All of the patient's questions were answered. The patient was instructed to return to the emergency department should the symptoms at all worsen or return, otherwise to followup with the physician as we discussed. - Data Points Laboratory Results: 01/11/19 01/11/19 18:26 18:07 POC Sodium 141 mEq/L mEq/L (135-145) POC Potassium 3.4 mEq/L mEq/L (3.3-5.0) POC Chloride 103.0 mEq/L mEq/L (97-110) POC Total CO2 28 mEq/L mEq/L (22-31) POC BUN 16 mg/dL mg/dL (7-23) POC Creatinine 0.5 mg/dL L mg/dL (0.6-1.0) POC Glucose 110 mg/dL H mg/dL (70-100) POC Calcium 9.5 mg/dL mg/dL (8.5-10.4) POC Total Bilirubin 1.1 mg/dL mg/dL (0.1-1.4) POC GGT 28 IU/L IU/L (5-65) POC AST 37 IU/L IU/L (14-46) POC ALT 25 IU/L IU/L (9-52) POC Alk Phosphatase 71 IU/L IU/L (38-126) POC Total Protein 7.1 g/dL g/dL (6.3-8.2) POC Albumin 3.7 g/dL g/dL (3.5-5.0) POC Amylase 35 IU/L IU/L (30-110) Medications Given: Discontinued Medications Dabigatran (Pradaxa) 150 mg PO EDNOW ONE Stop: 01/11/19 17:37 Last Admin: 01/11/19 17:48 Dose: Not Given Point of Care Test Results: CBC CBC Collection Date 01/11/19 CBC Collection Time 17:42 WBC 8.97 RBC 4.98 HGB 14.4 HCT 42.8 PLT 187 Neut # 5.99 Neut 66.8 LYMPH # 2.35 LYMPH 26.2 MCV 85.9 Chemistry 01/11/19 01/11/19 18:26 18:07 POC Sodium 141 mEq/L mEq/L (135-145) POC Potassium 3.4 mEq/L mEq/L (3.3-5.0) POC Chloride 103.0 mEq/L mEq/L (97-110) POC Total CO2 28 mEq/L mEq/L (22-31) POC BUN 16 mg/dL mg/dL (7-23) POC Creatinine 0.5 mg/dL L mg/dL (0.6-1.0) POC Glucose 110 mg/dL H mg/dL (70-100) POC Calcium 9.5 mg/dL mg/dL (8.5-10.4) POC Total Bilirubin 1.1 mg/dL mg/dL (0.1-1.4) POC GGT 28 IU/L IU/L (5-65) POC AST 37 IU/L IU/L (14-46) POC ALT 25 IU/L IU/L (9-52) POC Alk Phosphatase 71 IU/L IU/L (38-126) POC Total Protein 7.1 g/dL g/dL (6.3-8.2) POC Albumin 3.7 g/dL g/dL (3.5-5.0) POC Amylase 35 IU/L IU/L (30-110) Departure - Departure Disposition: Home, Routine, Self-Care Clinical Impression: DVT (deep venous thrombosis) Qualifiers: DVT location: lower extremity Affected thrombotic vein of extremity: unspecified lower extremity distal vein Chronicity: acute Laterality: right Qualified Code(s): I82.4Z1 - Acute embolism and thrombosis of unspecified deep veins of right distal lower extremity Burden cyst Qualifiers: Laterality: right Qualified Code(s): M71.21 - Synovial cyst of popliteal space [Burden], right knee Condition: Fair Instructions: Dabigatran (By mouth), Deep Vein Thrombosis (ED), Bakers Cyst (ED ) Additional Instructions: Pradaxa coupon card: Prescription group number [id number] Bin number [id number] Id number [id number] Manager Biostatistics number [id number] Or you may go to [facility] Emergency Department senior front end engineer and metal pickling equipment operator the card Referrals: Estephanie Saucedo MD [Medical Doctor] - 2-3 days, if not improved Prescriptions: Dabigatran Etexilate Mesyl [Pradaxa 150 MG (*)] 150 mg PO BID #60 cap
[2019-01-11] MEDS ORDERED: DABIGATRAN ETEXILATE MESYL 150 MG CAP PO ONE (17:36)
[2019-01-11 18:45] VITALS: BP 134/64
== END 2019-01-11 19:13 | disposition home or self-care (01) ==
LOC: CED 15:54
DX: I82.4Z1 Acute embolism and thrombosis of unspecified deep veins of right distal lower extremity (principal); M71.21 Synovial cyst of popliteal space [Baker], right knee
CPT/HCPCS: 80048-ER; 80076-ER; 82150-ER; 85025-QW-ER; 85379-QW-ER; 93971-PO; 99284-ER